=== PATIENT | male | born 2005 | race Caucasian/White ===

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

== ENCOUNTER 2024-01-29 03:55 | Emergency (ER) | payer OTHER, SELFPAY ==
[2024-01-29] VITALS (17 sets, daily range): BP systolic 104–136; BP diastolic 62–91; PULSE 102–134; RESP 12–28; TEMP 36.8–37.2; O2SAT 95–100; BMI 32.5
--- NOTE | 2024-01-29 04:01 | EX.ED.DYSGE1 ---
HPI History of Present Illness Chief Complaint: Abd Pain PFSH PFSH Medical History no medical history Home Medications ?Medication ?Instructions ?Recorded ?Last Taken ?Type fluoxetine 20 mg capsule 20 mg PO DAILY 01/29/24 Unknown History ondansetron 4 mg disintegrating 4 mg PO Q8H PRN PRN Nausea #10 tabs 01/29/24 Unknown Rx tablet Allergy/AdvReac Type Severity Reaction Status Date / Time No Known Allergies Allergy Verified 01/29/24 04:00 Social History (System 01/03/18 @ 10:39 by Julienne Suarez) Smoking Status: Never smoker EXAM Physical Exam Const Vital Signs: 01/29/24 03:57 01/29/24 04:00 01/29/24 04:10 Temperature 99 F 99 F Temperature Source Oral Oral Pulse Rate 133 H 130 H 134 H Respiratory Rate 18 26 H 28 H Blood Pressure 131/86 H 131/86 H Blood Pressure Mean 101 101 Pulse Ox 98 100 100 Oxygen Delivery Method Room Air Room Air 01/29/24 04:15 01/29/24 04:30 01/29/24 04:45 Temperature Temperature Source Pulse Rate 131 H 117 H 108 H Respiratory Rate 27 H 20 H 24 H Blood Pressure Blood Pressure Mean Pulse Ox 100 100 100 Oxygen Delivery Method 01/29/24 05:00 01/29/24 05:00 01/29/24 05:15 Temperature 98.3 F Temperature Source Oral Pulse Rate 113 H 111 H 113 H Respiratory Rate 12 24 H 26 H Blood Pressure 129/66 H Blood Pressure Mean 87 Pulse Ox 99 99 100 Oxygen Delivery Method Room Air 01/29/24 05:41 01/29/24 05:45 01/29/24 05:48 Temperature Temperature Source Pulse Rate 113 H 116 H 107 H Respiratory Rate 21 H 24 H 13 Blood Pressure 129/66 H 129/66 H Blood Pressure Mean 82 87 Pulse Ox 100 95 99 Oxygen Delivery Method Room Air 01/29/24 06:00 01/29/24 06:00 01/29/24 06:15 Temperature 98.9 F Temperature Source Oral Pulse Rate 112 H 121 H Respiratory Rate 16 14 Blood Pressure 136/91 H 136/91 H 124/82 H Blood Pressure Mean 106 106 94 Pulse Ox 99 98 Oxygen Delivery Method Room Air 01/29/24 06:15 01/29/24 06:30 01/29/24 06:45 Temperature Temperature Source Pulse Rate 119 H 113 H 121 H Respiratory Rate 14 15 16 Blood Pressure 124/82 H Blood Pressure Mean 94 Pulse Ox 98 99 99 Oxygen Delivery Method 01/29/24 07:00 01/29/24 07:00 Temperature 98.6 F Temperature Source Oral Pulse Rate 102 H 121 H Respiratory Rate 16 15 Blood Pressure 104/62 104/63 Blood Pressure Mean 76 76 Pulse Ox 99 99 Oxygen Delivery Method Room Air [facility] [place] Narrative Medical decision making narrative: HISTORY OF PRESENT ILLNESS: 18 year old male presents with nausea vomiting diarrhea. He states this began approximately 1:30 AM, 2 and half hours prior to arrival. He states he has diffuse abdominal pain. No sick contacts. No recent travel, no antibiotics. No fever. No melena or hematochezia. Denies history abdominal surgeries or past history. Last BM was pror to arrival. No allergies. Chest pain, shortness of breath. No urinary complaints REVIEW OF SYSTEMS: Pertinent positives: Abdominal pain nausea vomiting diarrhea Pertinent negatives: As per HPI PHYSICAL EXAM: Nursing triage notes reviewed, Vital signs reviewed Constitutional: please see [facility] HENT: MMM Eyes: Pupils equal round and reactive to light, Extraocular muscles intact Neck: No stridor, no JVD, full neck ROM Lungs: Clear to auscultation, No wheezing or rales. No increased work of breathing, no conversational dyspnea, no accessory muscle use, no nasal flaring. No respiratory distress noted Heart: Regular rate and rhythm, No murmurs, No rubs and No gallops, 2+ distal pulses (radial, femoral, posterior tibial) in all extremities Abdomen: Soft, diffuse TTP but no rigidity, rebound or guarding, no obvious peritoneal signs, no palpable pulsatile abdominal masses, no auscultated abdominal bruit : No CVAT Extremities: No edema Neuro: No new focal neurological deficits, cranial nerves II through XII intact, 5/5 strength in all present extremities. Intact sensation to light touch in all present extremities, 2+ reflexes bilateral patella tendons. Skin: No rash or lesions noted MEDICAL DECISION MAKING: Chief Complaint: Abdominal pain nausea vomiting diarrhea External records reviewed: Reviewed prior imaging studies Factors affecting care: none Social determinants of health: none History obtained from others: patient's father Consults: none [facility] Narrative: Patient was initially tachycardic rate 133 otherwise afebrile nontoxic-appearing. Diffuse abdominal TTP on initial exam. I considered the following differential diagnosis: Viral bacterial gastroenteritis, dehydration, electrolyte disturbance, arrhythmia, anemia, obstruction, perforation, acute appendicitis I obtained a broad lab workup to further elucidate the etiology of the patient's complaints. I initially treated the patient 2 L normal saline, Toradol for pain, Zofran for nausea vomiting control. Patient was quite anxious I gave 1 mg of Ativan to control anxiety. ALL IMAGES (IF OBTAINED) HAVE BEEN PERSONALLY REVIEWED AND INTERPRETED BY MYSELF. CBC with leukocytosis suggestive of systemic inflammation, hemoglobin elevated consistent with hemoconcentration and dehydration BMP without evidence of significant electrolyte abnormalities, no anion gap, no acute kidney injury. No signs of metabolic acidosis or endorgan perfusion with negative anion gap Lipase is wnl indicating no pancreatic inflammation. LFTs show no evidence of hepatobiliary pathology. CT scan abdomen pelvis was negative for acute intra-abdominal pathology. Repeat abdominal exam showed right lower quadrant tenderness. Patient was persistently tachycardic with a heart rate that improved but is still in the 110s. Given abnormal vital signs and right lower quadrant tenderness as well as leukocytosis I obtained a CT scan rule out acute appendicitis or other acute surgical pathology in the abdomen. While the patient remained tachycardic I do not suspect this is related to a sign of significant stress in the body or signs of impending life-limiting etiology. Suspect is related to profound dehydration as evidenced by his lab workup and history. He was given Zofran for home-going. Is also given instructions to take in plenty of electrolyte containing fluids. Strict return precautions were discussed. The patient expressed understanding agree with the plan. The patient and/or family, caregivers express understanding. The patient and/or family, caregivers agrees with the plan. Shared decision making: I will have a discussion with the patient and or visitors regarding risk/benefits of further testing or admission. They will be made aware of of the risk/benefits inherent in this decision they will be given the opportunity to voice understanding. Total critical care time today provided was at least 0 minutes. This excludes separately billable procedures. Critical care time (if documented) is secondary to the patient having high probability of clinically significant/life threatening deterioration in the patient's condition which required my urgent intervention. Impression: 1. Acute abdominal pain 2. Nausea, diarrhea 3. Dehydration Dispo: Discharge home This note was generated with [employer] software. It may contain incorrect words, spelling, and punctuation that were not noted in review of the chart prior to signing. Lab Data Labs: Laboratory Results - last 24 hr 01/29/24 04:04 WBC 14.1 H RBC 6.32 H Hgb 18.0 H* Hct 51.5 MCV 81.5 MCH 28.5 MCHC 35.0 RDW Std Deviation 37.1 RDW Coeff of Radha 12.6 Plt Count 308 MPV 9.7 Immature Gran % (Auto) 0.400 Neut % (Auto) 83.8 H Lymph % (Auto) 6.4 L [place] % (Auto) 8.2 Eos % (Auto) 0.6 Baso % (Auto) 0.6 Absolute Neuts (auto) 11.8 H Absolute Lymphs (auto) 0.90 Nucleated RBC % 0 Diff Path Review May foll Sodium 140 Potassium 3.7 Chloride 107 Carbon Dioxide 22.0 Anion Gap 11 BUN 20 H Creatinine 1.37 H Estim Creat Clear Calc 103.31 Est GFR (MDRD) Af Amer 85 Est GFR (MDRD) Non-Af 70 BUN/Creatinine Ratio 14.6 Glucose 121 H Calcium 9.1 Total Bilirubin 0.90 AST 17 ALT 46 Alkaline Phosphatase 82 Total Protein 7.6 Albumin 4.1 Globulin 3.5 Albumin/Globulin Ratio 1.2 Lipase 29 Radiography Diagnostic Testing: Clinical Impression(s) from Imaging Studies Abdomen/Pelvis CT 01/29/24 05:14 IMPRESSION: No acute abdominal abnormality is identified, to include normal appendix and no evidence of obstructing ureteral calculus. Electronically Signed: Anthony Saleh MD at 7:02 EST , Discharge Plan Triage Chief Complaint: Abd Pain ED Provider: Marquise Khan Dx/Rx/DC Orders Instructions: Dehydration, ED Abdominal Pain Unkn Cause Male... Prescriptions: New ondansetron 4 mg tablet,disintegrating 4 mg PO Q8H PRN PRN (Reason: Nausea) Qty: 10 0RF No Action fluoxetine 20 mg capsule 20 mg PO DAILY Primary Care Provider: Care Physician,No Primary Referrals: Conrad Clark MD [Non-Staff] - Activity Restrictions/Additional Instructions: Thank you for trusting us with your care today! Your labs images are consistent with dehydration likely secondary to a viral gastroenteritis. Please take Tylenol (2 pills, 650 mg), ibuprofen (2 pills, 400 mg) every 6 hours as needed for pain and fever control. Please take Zofran as needed for nausea and vomiting control. Please drink plenty of electrolyte containing fluids including Body Armor, Pedialyte or Gatorade. Please return to the emergency department if your symptoms change or worsen. Please follow with your primary care physician for further outpatient evaluation and management. Print Language: Barbadian
--- NOTE | 2024-01-29 04:02 | EKG12_ITS ---
Test Reason : Blood Pressure : */* mmHG Vent. Rate : 119 BPM Atrial Rate : 119 BPM P-R Int : 114 ms QRS Dur : 72 ms QT Int : 324 ms P-R-T Axes : 78 104 51 degrees QTcB Int : 455 ms Sinus tachycardia Rightward axis Borderline ECG Confirmed by William Euceda ([id number]), electronic news gathering editor SOPHIA ROCHA ([id number]) on 01/31/2024 11:33:22 AM Referred By: SIDRA Confirmed By: William Euceda
[2024-01-29 04:09] LABS: Absolute Neutrophil Count 11.8 X10^3/uL (2.0-7.7); Basophil# 0.08 X10^3/uL; Basophil% 0.6 % (0-1); Eosinophil# 0.09 X10^3/uL; Eosinophils% 0.6 % (0-5); Hematocrit 51.5 % (40-54); Lymphocyte % 6.4 % (19-41); Mean Corpuscular Hgb 28.5 pg (27.0-32.0); Mean Corpuscular Volume 81.5 fL (80-94); Mean Platelet Vol. 9.7 fl (6.2-12.0); Monocyte# 1.15 X10^3/uL; Monocyte% 8.2 % (0-10); NRBC Flagged by Analyzer 0 % (0-5); Neutrophil # 11.81 X10^3/uL (2.7-7.7); Neutrophil % 83.8 % (47-70); Platelet Count 308 K/mm3 (150-450); RBC Distribution Width CV 12.6 % (11.6-14.6); RBC Distribution Width SD 37.1 fl (35.1-43.9); Red Blood Count 6.32 M/mm3 (4.6-6.2); White Blood Count 14.1 K/mm3 (4.4-11.0)
[2024-01-29 04:14] LABS: Differential Indicated SCAN CRITERIA MET
[2024-01-29] MEDS: Ondansetron 4 MG/2 ML Vial IV ×2 (04:16→07:14)
[2024-01-29] MEDS: LORazepam 2 MG/ML Syringe 1 MG IV (04:16)
[2024-01-29] MEDS: Ketorolac 15 MG/ML Vial IV (04:16)
[2024-01-29] MEDS: 0.9% Normal Saline (1000mL) 1,000 ML 999 ML IV ×2 (04:16→05:46)
[2024-01-29 04:26] LABS: ALB/GLOB Ratio 1.2 RATIO (0.9-2.4); AST(SGOT) 17 U/L (15-37); Alanine Aminotransfer ALT/SGPT 46 U/L (16-61); Albumin, Serum 4.1 g/dL (3.2-5.0); Alkaline Phosphatase 82 U/L (45-117); Anion Gap 11 (5-15); BUN 20 mg/dL (7-18); BUN/Creat Ratio 14.6 RATIO (10-20); Calcium,Total 9.1 mg/dL (8.5-10.1); Chloride 107 mmol/L (98-107); Creatinine, Serum 1.37 mg/dL (0.70-1.30); EST Glomerular Filtration Rate 70 mL/min (>60); Est Glom Filt Rate - Afr Amer 85 mL/min (>60); Estimated Creatinine Clearance 103.31 ml/min; Globulin 3.5 g/dL (2.2-4.2); Glucose 121 mg/dL (74-106); Lipase 29 U/L (13-75); Potassium 3.7 mmol/L (3.5-5.1); Protein, Total 7.6 g/dL (6.4-8.2); Sodium Level 140 mmol/L (136-145)
--- NOTE | 2024-01-29 05:14 | CT_ITS ---
INDICATION: RLQ abdominal pain COMPARISON: None. IV Contrast dosage and agent: 84 cc [id number]-300 IV. A radiation dose optimization technique was used for this scan. RADIATION DOSAGE (If Supplied By Facility): CTDIvol/DLP = ( 25.37 ) / ( 1205.41 ) mGy/mGycm FINDINGS: Contrast enhanced serial CT axial images through the abdomen and pelvis with coronal and sagittal reformatted series. PANCREAS: No peripancreatic fat stranding. BOWEL/MESENTERY: No dilated bowel loops. No significant free fluid. No free air. GALLBLADDER: No pericholecystic fat stranding. LIVER/STOMACH: No obvious abnormality. APPENDIX: Normal caliber gas containing appendix. URINARY COLLECTING SYSTEM/ KIDNEYS: No obstructing ureteral calculus. No significant renal parenchymal abnormality. LUNG BASES: Unremarkable. BONES: Unremarkable for age. CT/Abdomen/Pelvis W IV Cont ONLY IMPRESSION: No acute abdominal abnormality is identified, to include normal appendix and no evidence of obstructing ureteral calculus. Electronically Signed: Anthony Saleh MD at 7:02 EST ,
[2024-01-31 13:50] LABS: Pathologist Review Reviewed
== END 2024-01-29 07:15 | disposition home or self-care (01) ==
PROVIDERS: Emergency Provider Emergency Medicine; Visit Provider Emergency Medicine
DX: R10.813 Right lower quadrant abdominal tenderness (principal); E86.0 Dehydration; R11.0 Nausea; R19.7 Diarrhea, unspecified; R06.02 Shortness of breath; Z79.899 Other long term (current) drug therapy; R07.9 Chest pain, unspecified
CPT/HCPCS: 74177; 80053; 83690; 85025; 87631; 93005; 96361; 96374; 96375; 96376; 99283; Q9967; A4216; J2405